=== PATIENT | male | born 1980 | race Caucasian/White ===

== ENCOUNTER 2017-01-21 02:17 | Emergency (ER) | payer MEDICAID ==
[~2017-01-21] VITALS: Ht 170.2 cm; Wt 69.2 kg
[2017-01-21 02:18] VITALS: BP 116/79
== END 2017-01-21 04:27 | disposition home or self-care (01) ==
LOC: ED 04:21
DX: B86 Scabies (principal); F17.210 Nicotine dependence, cigarettes, uncomplicated; F19.10 Other psychoactive substance abuse, uncomplicated
CPT/HCPCS: 99283

== ENCOUNTER 2017-03-24 03:04 | Emergency (ER) | payer MEDICAID ==
[~2017-03-24] VITALS: Ht 167.6 cm; Wt 69.8 kg
[2017-03-24 03:06] VITALS: BP 132/78
== END 2017-03-24 05:30 | disposition home or self-care (01) ==
LOC: ED 03:59
DX: R21 Rash and other nonspecific skin eruption (principal); F17.210 Nicotine dependence, cigarettes, uncomplicated
CPT/HCPCS: 99283